=== PATIENT | female | born 1975 | race Caucasian/White ===

== ENCOUNTER → 2017-01-30 | Outpatient (CLI) | payer OTHER | LOC: MAMO 10:00 | DX: N63 Unspecified lump in breast (principal) | CPT/HCPCS: 76641-LT; 76641-RT; G0204 ==

== ENCOUNTER → 2021-02-13 | Outpatient (CLI) | payer OTHER ==
[~2021-02-13] MED LIST: AMITRIPTYLINE H10 MG PO; COLACE 100MG C100 MG PO; EFFEXOR XR 150150 MG PO; IBUPROFEN IB200 MG PO; METOPROLOL SUCC25 MG PO; NORCO 5-325 TA1 EACH PO; SODIUM FLUORID100 ML PO
== END ==
LOC: RAD 16:13
DX: M25.551 Pain in right hip (principal)
CPT/HCPCS: 73502

== ENCOUNTER → 2021-03-17 | Outpatient (CLI) | payer OTHER ==
[~2021-03-17] MED LIST changes: +HYDROCODON-ACE1 EAC6 PO; +IBUPROFEN600 MG PO; +VENLAFAXINE HC150 MG PO
[2021-03-17 11:21] LABS: HEMOGLOBIN 13.5 gm/dl (12.3-15.3); RED BLOOD COUNT 4.17 M/UL (4.00-5.10); WHITE BLOOD COUNT 8.4 K/UL (4.5-11.0)
== END ==
LOC: OPSV2 10:00
PROVIDERS: Obstetrics & Gynecology
DX: Z01.818 Encounter for other preprocedural examination (principal); N93.9 Abnormal uterine and vaginal bleeding, unspecified; R94.31 Abnormal electrocardiogram [ECG] [EKG]; I21.9 Acute myocardial infarction, unspecified
CPT/HCPCS: 36415; 81001; 85025; 93005

== ENCOUNTER 2021-03-28 06:26 | Day surgery (SDC) | payer OTHER ==
[~2021-03-28] VITALS: Ht 157.5 cm; Wt 99.3 kg
[~2021-03-28 06:26] MED LIST changes: -HYDROCODON-ACE1 EAC6 PO; -IBUPROFEN600 MG PO; -VENLAFAXINE HC150 MG PO
[2021-03-28] MEDS ORDERED: COLACE 100MG C100 MG PO (08:15)
[2021-03-28] MEDS ORDERED: HYDROCODON-ACE1 EAC6 PO (08:15)
[2021-03-28] MEDS ORDERED: IBUPROFEN600 MG PO (08:15)
[2021-03-28] MEDS ORDERED: VENLAFAXINE HC150 MG PO (13:12)
[2021-03-29 07:51] LABS: HEMOGLOBIN 11.8 gm/dl (12.3-15.3)
== END 2021-03-29 20:10 | disposition home or self-care (01) ==
LOC: OR 06:26 → OB 12:31 → OR 03-29 20:10
PROVIDERS: Obstetrics & Gynecology
DX: N72 Inflammatory disease of cervix uteri (principal); N87.9 Dysplasia of cervix uteri, unspecified; N88.8 Other specified noninflammatory disorders of cervix uteri; M19.90 Unspecified osteoarthritis, unspecified site; F32.9 Major depressive disorder, single episode, unspecified; K21.9 Gastro-esophageal reflux disease without esophagitis; R60.9 Edema, unspecified; Z98.890 Other specified postprocedural states; Z88.1 Allergy status to other antibiotic agents; Z88.8 Allergy status to other drugs, medicaments and biological substances; Z79.899 Other long term (current) drug therapy; Z20.822 Contact with and (suspected) exposure to COVID-19
CPT/HCPCS: 36415; 85014; 85018; J0690; J1100; J1170; J1885; J2250; J2270; J2405; J2704; J2710; J2795; J3010; J7120; U0002

== ENCOUNTER 2021-04-30 21:02 | Emergency (ER) | payer OTHER ==
[~2021-04-30 21:02] MED LIST changes: +HYDROCODON-ACE1 EAC6 PO; +IBUPROFEN600 MG PO; +VENLAFAXINE HC150 MG PO
== END 2021-05-01 00:16 | disposition home or self-care (01) ==
LOC: ER1 21:02
DX: U07.1 COVID-19 (principal); J12.82 Pneumonia due to coronavirus disease 2019; Z90.710 Acquired absence of both cervix and uterus; Z88.1 Allergy status to other antibiotic agents
CPT/HCPCS: 99284

== ENCOUNTER 2021-08-17 14:32 | Emergency (ER) | payer OTHER ==
[2021-08-17] MEDS ORDERED: PROVENTIL HFA6.7 GM INH (17:47)
== END 2021-08-17 18:00 | disposition home or self-care (01) ==
LOC: ER1 14:32
DX: J06.9 Acute upper respiratory infection, unspecified (principal); I10 Essential (primary) hypertension; Z88.1 Allergy status to other antibiotic agents; Z88.8 Allergy status to other drugs, medicaments and biological substances; Z20.822 Contact with and (suspected) exposure to COVID-19
CPT/HCPCS: 71045; 99283; U0002

== ENCOUNTER → 2022-04-05 | Outpatient (CLI) | payer OTHER ==
[~2022-04-05] MED LIST changes: +PROVENTIL HFA6.7 GM INH
== END ==
LOC: HEART 5 03-14 08:00
DX: I34.0 Nonrheumatic mitral (valve) insufficiency (principal); R60.9 Edema, unspecified; R00.2 Palpitations
CPT/HCPCS: 93306